=== PATIENT | male | born 1955 | race Caucasian/White ===

== ENCOUNTER 2021-02-28 09:18 | Inpatient (IN) | payer MEDICAID, OTHER ==
[~2021-02-28] VITALS: Ht 167.6 cm; Wt 96.7 kg
[2021-02-28 09:51] LABS: BASOPHILS % 0.7 % (0.0-2.0); EOSINOPHILS % 4.2 % (0.0-5.0); HEMATOCRIT. 41.9 % (42.0-52.0); HEMOGLOBIN. 14.3 g/dL (14.0-18.0); LYMPHOCYTES % 23.1 % (20.0-50.0); MEAN CORPUSCULAR HEMOGLOBIN 33.8 pg (28.0-32.0); MEAN CORPUSCULAR VOLUME 98.9 fL (80.0-94.0); MEAN PLATELET VOLUME 9.4 fl (7.4-10.4); MONOCYTES % 10.7 % (2.0-8.0); NEUTROPHILS % 61.3 % (40.0-76.0); PLATELET 145 x1000/uL (130-400); RED BLOOD CELL COUNT 4.23 mill/uL (4.7-6.1)
[2021-02-28 10:04] LABS: CHLORIDE 108 mEq/L (98-107)
[2021-02-28] MEDS ORDERED: SODIUM CHLORIDE 0.45% 1,000 ML IV ONE (10:30)
[2021-02-28] MEDS ORDERED: IODIXANOL 320MG/ML 100 ML BOTTLE IV ONE (12:47)
[2021-02-28] MEDS ORDERED: LIDOCAINE HCL 1% 10 MG/ML 10ML VIAL ONE (12:47)
[2021-02-28] MEDS ORDERED: HEPARIN 1000 UNITS/ML 10ML ONE (12:47)
[2021-02-28] MEDS ORDERED: MIDAZOLAM HCL 2 MG/2 ML VIAL ONE (12:47)
[2021-02-28] MEDS ORDERED: FENTANYL CITRATE/PF 50MCG/ML 2ML VIAL ONE (12:47)
[2021-02-28] MEDS ORDERED: IOHEXOL-300 100 ML BOTTLE ONE (12:58)
[2021-02-28 13:08] LABS: CLARITY URINE CLEAR (CLEAR); COLOR URINE YELLOW (YELLOW); KETONES URINE NEGATIVE (NEGATIVE); LEUKOCYTE ESTERASE URINE NEGATIVE (NEGATIVE); NITRITE URINE NEGATIVE (NEGATIVE); OCCULT BLOOD URINE NEGATIVE (NEGATIVE); PH URINE 6.5 (4.5-8.0); PROTEIN URINE NEGATIVE (NEGATIVE); SPECIFIC GRAVITY URINE 1.012 (1.005-1.030); UROBILINOGEN URINE 0.2 E.U./dL (0.2-1.0)
[2021-02-28] MEDS ORDERED: CLOPIDOGREL 75MG TABLET ONE (14:06)
[2021-02-28] MEDS ORDERED: ASPIRIN 325MG TABLET ONE (14:07)
[2021-02-28] MEDS ORDERED: ATROPINE SULFATE 1MG/10ML SYR IV PRN (14:15)
[2021-02-28] MEDS ORDERED: ACETAMINOPHEN 325MG TABLET PO PRN (14:15)
[2021-02-28] MEDS ORDERED: ONDANSETRON HCL 4MG/2ML INJ IV PRN (14:15)
[2021-02-28 14:31] VITALS: BP 134/77
[2021-02-28 15:19] VITALS: BP 134/77
[2021-02-28 16:01] VITALS: BP 120/72
[2021-02-28] MEDS ORDERED: [UNRECOGNIZED DRUG - OTHER] (16:23)
[2021-02-28] MEDS ORDERED: CLOP-31 PO (16:23)
[2021-02-28] MEDS ORDERED: CARV6.2548 MT (16:23)
[2021-02-28] MEDS ORDERED: ESOM40CA MT (16:23)
[2021-02-28] MEDS ORDERED: GLIP5TAB12 MT (16:23)
[2021-02-28] MEDS ORDERED: LISI20TA31 MT (16:23)
[2021-02-28] MEDS ORDERED: ATOR20TA65 MT (16:23)
[2021-02-28] MEDS ORDERED: DEXTROSE 50% WATER 50ML SYRINGE IV PRN (16:30)
[2021-02-28] MEDS: BLOOD SUGAR DIAGNOSTIC STRIP TEST SCH ×2 (17:10→20:36)
[2021-02-28] MEDS: INSULIN LISPRO 100 UNITS/ML SUBCUT SCH ×2 (17:11→20:36)
[2021-02-28] MEDS: CARVEDILOL 6.25 MG TABLET PO SCH (17:15)
[2021-02-28] MEDS: GLIPIZIDE 5MG TABLET PO SCH (17:15)
[2021-02-28] MEDS: ATORVASTATIN CALCIUM 20MG TABLET PO SCH (17:18)
[2021-02-28 18:01] VITALS: BP 134/73
[2021-02-28 20:10] VITALS: BP 118/57
[2021-02-28 22:10] VITALS: BP 116/61
[2021-03-01 00:10] VITALS: BP 100/58
[2021-03-01 02:44] VITALS: BP 109/72
[2021-03-01 04:06] VITALS: BP 115/70
[2021-03-01 06:07] VITALS: BP 121/75
[2021-03-01] MEDS: BLOOD SUGAR DIAGNOSTIC STRIP TEST SCH (06:07)
[2021-03-01 07:14] LABS: BASOPHILS % 0.5 % (0.0-2.0); EOSINOPHILS % 3.1 % (0.0-5.0); HEMATOCRIT. 40.4 % (42.0-52.0); HEMOGLOBIN. 13.7 g/dL (14.0-18.0); LYMPHOCYTES % 23.4 % (20.0-50.0); MEAN CORPUSCULAR HEMOGLOBIN 33.4 pg (28.0-32.0); MEAN CORPUSCULAR VOLUME 98.7 fL (80.0-94.0); MEAN PLATELET VOLUME 9.9 fl (7.4-10.4); MONOCYTES % 10.8 % (2.0-8.0); NEUTROPHILS % 62.2 % (40.0-76.0); PLATELET 120 x1000/uL (130-400); RED BLOOD CELL COUNT 4.09 mill/uL (4.7-6.1); RED CELL DISTRIBUTION WIDTH 15.8 % (11.6-14.6)
[2021-03-01 07:16] LABS: CHLORIDE 109 mEq/L (98-107)
[2021-03-01] MEDS: INSULIN LISPRO 100 UNITS/ML SUBCUT SCH (07:20)
[2021-03-01 07:27] VITALS: BP 110/71
[2021-03-01] MEDS: CARVEDILOL 6.25 MG TABLET PO SCH (08:38)
[2021-03-01] MEDS: ATORVASTATIN CALCIUM 20MG TABLET PO SCH (08:38)
[2021-03-01] MEDS: GLIPIZIDE 5MG TABLET PO SCH (08:38)
[2021-03-01] MEDS ORDERED: PANTOPRAZOLE 40MG DR TABLET PO SCH (09:00)
[2021-03-01] MEDS ORDERED: LISINOPRIL 20MG TABLET PO SCH (09:00)
[2021-03-01] MEDS ORDERED: CLOPIDOGREL 75MG TABLET PO SCH ×2 (09:00)
[2021-03-01] MEDS ORDERED: MEDICATION NOT ON FORMULARY EA (Esomeprazole Mag Trihydrate (Nexium) 1 CAP) MT SCH (09:00)
[2021-03-01] MEDS ORDERED: ASPIRIN 325MG TABLET PO SCH (09:00)
[2021-03-01 10:52] VITALS: BP 121/71
== END 2021-03-01 11:50 | disposition home or self-care (01) | DRG 175 ==
LOC: ER 09:18 → EDBEDREQTM 10:53 → EDBEDREQ 10:53 → EDBEDREQSVC 14:37 → 3WST 16:02
PROVIDERS: ADMIT Specialist; ATTEND Specialist
PROC: 027035Z Dilation of Coronary Artery, One Artery with Two Drug-eluting Intraluminal Devices, Percutaneous Approach (ICD-10-PCS; principal; 2021-02-28)
PROC: B211YZZ Fluoroscopy of Multiple Coronary Arteries using Other Contrast (ICD-10-PCS; 2021-02-28)
PROC: 4A023N7 Measurement of Cardiac Sampling and Pressure, Left Heart, Percutaneous Approach (ICD-10-PCS; 2021-02-28)
PROC: B215YZZ Fluoroscopy of Left Heart using Other Contrast (ICD-10-PCS; 2021-02-28)
DX: I25.110 Atherosclerotic heart disease of native coronary artery with unstable angina pectoris (principal); I24.9 Acute ischemic heart disease, unspecified; I50.9 Heart failure, unspecified; I11.0 Hypertensive heart disease with heart failure; I25.82 Chronic total occlusion of coronary artery; E11.9 Type 2 diabetes mellitus without complications; I25.5 Ischemic cardiomyopathy; E66.09 Other obesity due to excess calories; E78.5 Hyperlipidemia, unspecified; G47.33 Obstructive sleep apnea (adult) (pediatric); K21.9 Gastro-esophageal reflux disease without esophagitis; I25.2 Old myocardial infarction; Z79.4 Long term (current) use of insulin; Z68.34 Body mass index [BMI] 34.0-34.9, adult; Z79.84 Long term (current) use of oral hypoglycemic drugs; Z79.02 Long term (current) use of antithrombotics/antiplatelets; Z79.899 Other long term (current) drug therapy
CPT/HCPCS: 36415; 71045; 80048; 80053; 81003; 82962; 83036; 83880; 84484; 85025; 85347; 92943; 93005; 93458; 99285; C1725; C1769; C1874 ×2; C1887; C1893; J1644; J2250; J3010; J3490; Q9967